=== PATIENT | male | born 1965 | race Hispanic/Latino ===

== ENCOUNTER 2017-12-31 20:42 | Emergency (ER) | payer SELFPAY ==
[2017-12-31] MEDS ORDERED: Adacel (T-DAP) 0.5 ML VIAL ONE ×2 (20:51→21:30)
[2017-12-31] MEDS ORDERED: Lidocaine 1% (PF) 30 ML VIAL ONE (21:14)
[2017-12-31] MEDS ORDERED: Bacitracin Zinc 1 Packet ONE (21:51)
== END 2017-12-31 21:57 | disposition home or self-care (01) ==
LOC: ERS 20:42
DX: S61.215A Laceration without foreign body of left ring finger without damage to nail, initial encounter (principal); E11.9 Type 2 diabetes mellitus without complications; F17.210 Nicotine dependence, cigarettes, uncomplicated; W26.9XXA Contact with unspecified sharp object(s), initial encounter
CPT/HCPCS: 12001; 90471; 90715; J2001